=== PATIENT | male | born 1955 | race Caucasian/White ===

== ENCOUNTER 2021-09-17 06:24 | Day surgery (SDC) | payer MEDICARE ==
[2021-09-17] MEDS ORDERED: LACTATED RINGERS 1,000 ML IV ONE ×2 (06:25→08:00)
[2021-09-17] MEDS ORDERED: BSS/LIDOCAINE/EPINEPHRINE 1 ML VIAL ONE (07:16)
[2021-09-17] MEDS ORDERED: EPINEPHrine 1 MG/ML AMP ONE (07:16)
[2021-09-17] MEDS ORDERED: BRIMONIDINE 0.2% OPHTH DROPS 5 ML ONE (07:16)
[2021-09-17] MEDS ORDERED: TIMOLOL 0.5% OPHTH DROPS ONE (07:16)
[2021-09-17] MEDS ORDERED: TRIAMCIN/MOXIFLOX OPHTHALMIC 0.6 ML VIAL IO ONE (07:16)
--- NOTE | 2021-09-17 07:20 | ANESTHESIA ---
Pre-Anesthesia VS, & Labs - Diagnosis screening colonoscopy - Procedure colonoscopy Vital Signs: Temp Pulse Resp BP Pulse Ox 36.8 C 62 16 143/93 H 97 09/17/21 06:40 09/17/21 06:40 09/17/21 06:40 09/17/21 06:40 09/17/21 06:40 Height: 6 ft 4 in Weight (kg): 96 kg Body Mass Index: 25.7 BMI Classification: Overweight - NPO >8 hours Home Medications and Allergies Home Medications: Ambulatory Orders No Known Home Medications 09/16/21 No Known Home Medications 09/16/21 Allergies/Adverse Reactions: Allergies Allergy/AdvReac Type Severity Reaction Status Date / Time No Known Drug Allergies Allergy Verified 09/16/21 12:55 Anes History & Medical History - Anesthetic History Anesthesia Complications: reports: No previous complications - Medical History Cardiovascular: reports: None Pulmonary: reports: None Gastrointestinal: reports: None Urinary: reports: None Musculoskeletal: reports: None Endocrine/Autoimmune: reports: None Skin: reports: None Smoking Status: Never smoker History of Cancer?: No - Surgical History General: reports: Other Exam General: Alert, Oriented x3 Dental: WNL Mouth Opening: Greater than 4 Fingerbreadths Neck Mobility: Normal Mallampati classification: III Thyromental Distance: greater than 6 cm Respiratory: Lungs clear Cardiovascular: Regular rate, Normal S1, Normal S2 Plan Anesthesia Type: General Consent for Procedure(s) Verified and Reviewed: Yes Code Status: Attempt Resuscitation ASA classification: 1-Healthy patient Is this case an emergency?: No
[2021-09-17] MEDS ORDERED: PROPOFOL 500 MG/50 ML 500 MG/50 ML VIAL ONE (07:31)
[2021-09-17] MEDS ORDERED: LIDOCAINE-MPF 2% 5 ML VIAL ONE (07:31)
[2021-09-17] MEDS ORDERED: ONDANSETRON 4 MG/2 ML VIAL ONE (07:32)
[2021-09-17 08:24] VITALS: BP 114/76
--- NOTE | 2021-09-17 14:56 | ANESTHESIA POST OP EVALUATION ---
Anesthesia Post Eval - Post Anesthesia Eval Vitals: Last Vital Signs Temp 36.2 C L 09/17/21 08:23 Pulse 54 L 09/17/21 08:23 Resp 12 09/17/21 08:23 BP 114/76 09/17/21 08:23 Pulse Ox 98 09/17/21 08:23 CV Function Including HR & BP: Stable Pain Control: Satisfactory Nausea & Vomiting: Negative Mental Status: Baseline Respiratory Status: Airway Patent Hydration Status: Satisfactory Anesthesia Complications: None
== END 2021-09-17 06:25 | disposition home or self-care (01) ==
LOC: SDS 06:24
PROVIDERS: ATTEND Surgery
DX: Z12.11 Encounter for screening for malignant neoplasm of colon (principal); K57.30 Diverticulosis of large intestine without perforation or abscess without bleeding; R00.2 Palpitations
CPT/HCPCS: A9270; G0121; J7120

== ENCOUNTER 2021-12-10 11:09 | Outpatient (CLI) | payer MEDICARE | END 2021-12-10 11:10 | disposition home or self-care (01) | LOC: LAB 11:09 → RT 11:10 | PROVIDERS: ATTEND Nurse Practitioner Family | DX: R00.2 Palpitations (principal) | CPT/HCPCS: 93005 ==

== ENCOUNTER 2023-10-19 14:52 | Outpatient (CLI) | payer MEDICARE | END 2023-10-19 14:53 | disposition home or self-care (01) | LOC: DI 14:52 | PROVIDERS: ATTEND Internal Medicine Cardiovascular Disease | DX: I48.0 Paroxysmal atrial fibrillation (principal) | CPT/HCPCS: 93307 ==